=== PATIENT | female | born 1985 | race Caucasian/White ===

== ENCOUNTER 2018-02-07 12:53 | Outpatient (CLI) | END 2018-02-07 15:45 | disposition home or self-care (01) ==

== ENCOUNTER 2018-04-24 10:48 | Inpatient (IN) | END 2018-04-25 12:22 | disposition home or self-care (01) | DRG 833 ==

== ENCOUNTER 2018-05-02 16:45 | Inpatient (IN) | END 2018-05-05 16:27 | disposition home or self-care (01) | DRG 806 ==

== ENCOUNTER 2019-01-08 14:20 | Emergency (ER) | payer MEDICAID, OTHER ==
[~2019-01-08] VITALS: Ht 162.6 cm; Wt 111.1 kg
[~2019-01-08 14:20] MED LIST: PREN-93 PO
[2019-01-08 14:24] VITALS: Ht 162.6 cm; Wt 111.1 kg
[2019-01-08] MEDS ORDERED: SOD CHLORIDE 0.9% 1,000 ML IV STA (15:27)
[2019-01-08] MEDS ORDERED: ONDANSETRON 4 MG INJ IV STA (15:27)
[2019-01-08] MEDS ORDERED: CEFTRIAXONE 1 GM/50 ML (PMX) 50 ML IVPB ONE (18:00)
[2019-01-08] MEDS ORDERED: CEPH-443 PO (18:14)
[2019-01-08] MEDS ORDERED: ACET500C5 PO (18:15)
--- NOTE | 2019-01-08 18:23 | ERD ---
ER Documentation Chief Complaint Chief Complaint fever chills cough, vomitting x4 days HPI Patient is a 33-year-old female, no past medical history, presents to the ER for concerns of intermittent fevers, chills, vomiting x4 days. Patient reports T- max of 103. Patient states she is been taking Tylenol and ibuprofen. Last dose yesterday. Patient states she does not have a cough or sore throat. Please do not consume a triage note. Patient denies any chest pain, shortness breath, abdominal pain. Patient denies any dysuria, frequency or urgency. Patient is currently on her menstrual period. Patient denies any diarrhea or rectal bleeding. ROS All systems reviewed and are negative except as per history of present illness. Medications Home Meds Active Scripts Acetaminophen* (Tylophen*) 500 Mg Capsule, 1 CAP PO Q6H PRN for PAIN AND OR ELEVATED TEMP, #20 CAP Prov:PACHECO JONES PA-C 01/08/19 Cephalexin* (Keflex*) 500 Mg Capsule, 500 MG PO QID for 10 Days, CAP Prov:PACHECO JONES PA-C 01/08/19 Reported Medications Vit No.124/Iron/FA ( Vitamin Tablet) 1 Each Tablet, 1 EACH PO DAILY, TAB 04/24/18 Allergies Allergies: Coded Allergies: No Known Allergy (Verified , 05/02/18) PMhx/Soc History of Surgery: No Anesthesia Reaction: No Hx Neurological Disorder: No Hx Respiratory Disorders: No Hx Cardiac Disorders: No Hx Psychiatric Problems: No Hx Miscellaneous Medical Probl: No Hx Alcohol Use: No Hx Substance Use: No Hx Tobacco Use: No Smoking Status: Never smoker FmHx Family History: No diabetes Physical Exam Vitals Vital Signs Date Temp Pulse Resp B/P (MAP) Pulse Ox O2 O2 Flow FiO2 Time Delivery Rate 01/08/19 100.8 94 17 125/69 100 Room Air 18:45 (87) 01/08/19 99.2 101 18 123/56 98 14:24 (78) Physical Exam GENERAL: Well-developed, well-nourished female. Appears in no acute distress. HEAD: Normocephalic, atraumatic. No deformities or ecchymosis. EYE: Pupils equal, round, and reactive to light. EOMs intact. No conjunctival erythema. No eye discharge. ENT: External ear without any masses or tenderness. Auditory canals clear bilaterally. TM visualized bilaterally, non-erythematous, non-bulging. Nasal mucosa pink with no discharge. Oropharynx is erythematous with 1+ tonsillar enlargement bilaterally.. No uvula deviation. No kissing tonsils. NECK: Supple. No meningismus. Normal ROM of the neck. LUNG: Clear to auscultation bilaterally. No rhonchi, wheezing, rales or coarse breath sounds. HEART: Regular rate and rhythm. No murmurs, rubs or gallops. ABDOMEN: Soft nondistended. Tender to palpation in the bilateral lower quadrants. Positive bowel sounds in all four quadrants. No rebound tenderness, no guarding. (-) McBurney's point tenderness. No CVA tenderness. BACK: No midline tenderness. EXTREMITES: Equal pulses bilaterally. No peripheral clubbing, cyanosis or edema. No unilateral leg swelling. NEUROLOGIC: Alert and oriented to person, place and time. Moving all four extre mities. 5/5 strength in all extremities. Normal speech. Steady gait. SKIN: Normal color. Warm and dry. No rashes or lesions. Result Diagram: 01/08/19 1543 01/08/19 1543 Results 24 hrs Laboratory Tests Test 01/08/19 15:43 01/08/19 15:48 White Blood Count 3.7 10^3/ul Red Blood Count 4.59 10^6/ul Hemoglobin 12.4 g/dl Hematocrit 36.8 % Mean Corpuscular Volume 80.2 fl Mean Corpuscular Hemoglobin 27.0 pg Mean Corpuscular Hemoglobin Concent 33.7 g/dl Red Cell Distribution Width 13.3 % Platelet Count 165 10^3/UL Mean Platelet Volume 10.5 fl Immature Granulocytes % 1.600 % Neutrophils % 68.9 % Lymphocytes % 24.6 % Monocytes % 4.1 % Eosinophils % 0.5 % Basophils % 0.3 % Nucleated Red Blood Cells % 0.0 /100WBC Immature Granulocytes # 0.060 10^3/ul Neutrophils # 2.6 10^3/ul Lymphocytes # 0.9 10^3/ul Monocytes # 0.2 10^3/ul Eosinophils # 0.0 10^3/ul Basophils # 0.0 10^3/ul Nucleated Red Blood Cells # 0.0 10^3/ul Urine Color RAFFI Urine Clarity CLOUDY Urine pH 6.0 Urine Specific Cushing 1.017 Urine Ketones TRACE mg/dL Urine Nitrite NEGATIVE mg/dL Urine Bilirubin 1+ mg/dL Urine Urobilinogen 2+ mg/dL Urine Leukocyte Esterase 2+ Alisa/ul Urine Microscopic RBC > 182 /HPF Urine Microscopic WBC 107 /HPF Urine Squamous Epithelial Cells MANY /HPF Urine Bacteria FEW /HPF Urine Mucus FEW /HPF Urine Hemoglobin 3+ mg/dL Urine Glucose NEGATIVE mg/dL Urine Total Protein 2+ mg/dl Sodium Level 138 mmol/L Potassium Level 3.7 mmol/L Chloride Level 98 mmol/L Carbon Dioxide Level 27 mmol/L Anion Gap 13 Blood Urea Nitrogen 7 mg/dl Creatinine 0.67 mg/dl Est Glomerular Filtrat Rate mL/min > 60 mL/min Glucose Level 107 mg/dl Calcium Level 9.0 mg/dl Total Bilirubin 0.9 mg/dl Direct Bilirubin 0.00 mg/dl Indirect Bilirubin 0.9 mg/dl Aspartate Amino Transf (AST/SGOT) 84 IU/L Alanine Aminotransferase (ALT/SGPT) 75 IU/L Alkaline Phosphatase 125 IU/L Total Protein 8.3 g/dl Albumin 4.5 g/dl Globulin 3.80 g/dl Albumin/Globulin Ratio 1.18 Lipase 76 U/L Monoscreen Negative POC Beta HCG, Qualitative NEGATIVE Current Medications Medications Dose Sig/Maral Start Time Status Last (Trade) Ordered Route PRN Stop Time Admin Dose Reason Admin Sodium 1,000 ml @ Q1H STAT 01/08/19 DC 01/08/19 Chloride 1,000 mls/hr IV 15:27 15:47 01/08/19 16:26 Ondansetron 4 mg ONCE STAT 01/08/19 DC 01/08/19 HCl (Zofran IV 15:27 15:47 Inj) 01/08/19 15:29 Ceftriaxone 50 ml @ ONCE ONCE 01/08/19 DC 01/08/19 Sodium 100 mls/hr IVPB 18:00 17:59 01/08/19 18:29 1,000 mg ONCE STAT 01/08/19 DC 01/08/19 Acetaminophen PO 18:43 18:51 (Tylenol 01/08/19 18:44 Tab) Procedures/MDM ED COURSE: The patient was stable throughout ED course. I kept the patient and/or family informed of laboratory and diagnostic imaging results throughout the ED course. DIAGNOSTIC IMAGING: Read by radiologist. DIAGNOSTIC IMAGING REPORT Patient: ISATU KENNEDY : 1985 Age: 33 Sex: F MR #: [id number] DOS: 01/08/19 1643 Ordering MD: PACHECO JONES PA-C Location: [facility] Room/Bed: PROCEDURE: CT abdomen and pelvis without IV contrast. CLINICAL INDICATION: Abdominal pain TECHNIQUE: CT scan of the abdomen and pelvis without contrast was performed on the [employer] volumetric [address] scanner. The patient was scanned without intravenous contrast. Coronal and sagittal reformatted images were obtained from the axial source images. The CTDI vol is 20.38 mGy and the DLP is 1254.56 mGy- cm. DICOM images are available. One or more of the following dose reduction techniques were used: Automated exposure control. Adjustment of the mA and/or kV according to patient size. Use of iterative reconstruction technique. COMPARISON: None. FINDINGS: CT abdomen: The lung bases are clear. The heart size is not enlarged and is without pericardial thickening or effusion. The liver is without focal mass or intrahepatic biliary dilatation. The liver is enlarged measuring 18.4 cm with fatty infiltration. Spleen is enlarged measuring 16.1 cm in the cranial caudal axis. The spleen is homogeneous in density. The stomach is grossly unremarkable. The pancreas as visualized is normal. The gallbladder and biliary tree are unremarkable and there is no evidence for common bile duct dilatation. The adrenal glands are symmetric and normal. The kidneys are symmetrically unremarkable as well. No renal calculus or obstructive uropathy or mass lesion is seen. The aorta is of normal in caliber. There is no retroperitoneal lymphadenopathy. The mayco hepatis region is clear. The small and large bowel and mesentery, as visualized, are unremarkable. The normal appendix is identified. CT pelvis: The pelvic organs are normal. The pelvic sidewalls and inguinal regions are clear. No pelvic mass, lymphadenopathy, or free fluid is seen. No acute inflammation is seen. The urinary bladder is within normal limits. The surrounding osseous structures are unremarkable. No osteolytic or osteoblastic lesion is detected. IMPRESSION: 1. No acute pathology in the abdomen and pelvis. 2. Hepatosplenomegaly with fatty infiltration of the liver. RPTAT: HPNM Physician Lei Date Time Electronically viewed and signed by Pan Bazan Physician on 01/08/2019 17:40 / CC: PACHECO JONES PA-C [id number] Patient: ISATU KENNEDY : 1985 Age: 33 Sex: F MR #: [id number] DOS: 01/08/19 1621 Ordering MD: PACHECO JONES PA-C Location: [facility] Room/Bed: PROCEDURE: US Abdomen. CLINICAL INDICATION: RUQ pain TECHNIQUE: Multiple real-time images were acquired of the patient's abdomen and retroperitoneum utilizing a high resolution transducer. COMPARISON: None FINDINGS: The echogenic liver measures 19.2 cm. No gallstones are identified within the gallbladder. The gallbladder wall measures 3 mm. There is no pericholecystic fluid or gallbladder wall thickening. No intra or extrahepatic biliary dilatation is seen. The common bile duct measures 4.3 mm in maximal dimension. The visualized portions of the pancreas are unremarkable. There is no splenomegaly. No free fluid is identified. The right kidney measures 11.6 cm in long dimension. There is no dilatation of the pelvicaliceal systems bilaterally. There are no perinephric fluid collections. There are no areas of increased echogenicity to suggest nephrolithiasis. IMPRESSION: Suboptimal exam secondary to patient body habitus. Hepatic steatosis. Hepatomegaly. Underlying hepatocellular disease cannot be excluded. No biliary dilatation. Physician Trice Date Time Electronically viewed and signed by Physician Trice on 01/08/2019 17:39 RD/ CC: PACHECO JONES PA-C [id number] Patient: ISATU KENNEDY : 1985 Age: 33 Sex: F MR #: [id number] DOS: 01/08/19 1621 Ordering MD: PACHECO JONES PA-C Location: [facility] Room/Bed: PROCEDURE: US Abdomen. CLINICAL INDICATION: RUQ pain TECHNIQUE: Multiple real-time images were acquired of the patient's abdomen and retroperitoneum utilizing a high resolution transducer. COMPARISON: None FINDINGS: The echogenic liver measures 19.2 cm. No gallstones are identified within the gallbladder. The gallbladder wall measures 3 mm. There is no pericholecystic fluid or gallbladder wall thickening. No intra or extrahepatic biliary dilatation is seen. The common bile duct measures 4.3 mm in maximal dimension. The visualized portions of the pancreas are unremarkable. There is no splenome curly. No free fluid is identified. The right kidney measures 11.6 cm in long dimension. There is no dilatation of the pelvicaliceal systems bilaterally. There are no perinephric fluid collections. There are no areas of increased echogenicity to suggest nephrolithiasis. IMPRESSION: Suboptimal exam secondary to patient body habitus. Hepatic steatosis. Hepatomegaly. Underlying hepatocellular disease cannot be excluded. No biliary dilatation. Physician Trice Date Time Electronically viewed and signed by Physician Trice on 01/08/2019 17:39 RD/ CC: PACHECO JONES PA-C [id number] MEDICATIONS GIVEN: IV fluids, Zofran Patient tolerated medication well with no adverse reactions. Patient reported improvement in pain. MEDICAL DECISION MAKING: This is a 33-year-old female presents the ER for concerns of fevers, chills, vomiting abdominal pain. Vital signs were reviewed. Patient is afebrile. IV line is established. Blood work is obtained. CBC showed no evidence of systemic infection or severe anemia. CMP showed no evidence of electrolyte abnormalities, severe acidosis, alkalosis, renal failure. Patient's AST was noted to be 84, ALT of 75, alk phos 125. Lipase showed no evidence of acute pancreatitis. UA did show 2+ leukocyte esterase, 182 RBCs, 107 WBCs and 3+ hemoglobin. Patient is currently on her menstrual.. Urine test was negative. Gallbladder ultrasound was unremarkable except for hepatic steatosis. CT abdomen pelvis showed no acute pathology in the abdomen or pelvis. Given that patient does have positive WBCs and leukocyte esterase as well as fevers, chills, nausea and vomiting there are concerns of pyelonephritis. Patient denied any UTI symptoms however she states she is not sure if her pelvic discomfort is related to urinary symptoms versus menstrual symptoms. Patient was treated with Rocephin as a precaution for pyelonephritis. Patient will be discharged home with prescription for Keflex. Repeat UA was advised in 10 days upon completion of antibiotics. Prior to discharge patient did reported throat pain. At that time rapid strep and Monospot was ordered. Both were negative. At this time, patient's presentation was consistent with fever, nausea, vomiting and abdominal pain. Differential diagnosis included but was not limited to acute coronary syndrome, AAA, mesenteric ischemia, lower lobe pneumonia, strep pharyngitis, mononucleosis, DKA, bowel perforation, cholecystitis, choledocholit hiasis, ascending cholangitis, hepatic abscess, pancreatitis, PUD, gastritis, GERD, splenic rupture, diverticulitis, UTI, pyelonephritis, nephrolithiasis, appendicitis, constipation, , ectopic , PID, ovarian torsion or tubo-ovarian abscess. PRESCRIPTIONS: Tylenol, Keflex DISCHARGE: At this time, patient is stable for discharge and outpatient management. I have instructed the patient to follow-up with his/her primary care physician in 1-2 days. I have instructed the patient to promptly return to the ER at any time for any new or worsening symptoms including increased pain, nausea, vomiting, diarrhea, fever, weakness or LOC. The patient and/or family expressed understanding of and agreement with this plan. All questions were answered. Home care instructions were provided. Disclaimer: Inadvertent spelling and grammatical errors are likely due to EHR/dictation software use and do not reflect on the overall quality of patient care. Also, please note that the electronic time recorded on this note does not necessarily reflect the actual time of the patient encounter. Departure Diagnosis: Primary Impression: Fever Fever type: unspecified Qualified Codes: R50.9 - Fever, unspecified Additional Impression: Vomiting Vomiting type: unspecified Vomiting Intractability: unspecified Nausea presence: unspecified Qualified Codes: R11.10 - Vomiting, unspecified Condition: Fair Patient Instructions: Fever Control (Adult), Vomiting (6Y-Adult) Referrals: [facility] YOU HAVE RECEIVED A MEDICAL SCREENING EXAM AND THE RESULTS INDICATE THAT YOU DO NOT HAVE A CONDITION THAT REQUIRES URGENT TREATMENT IN THE EMERGENCY DEPARTMENT. FURTHER EVALUATION AND TREATMENT OF YOUR CONDITION CAN WAIT UNTIL YOU ARE SEEN IN YOUR DOCTORS OFFICE WITHIN THE NEXT 1-2 DAYS. IT IS YOUR RESPONSIBILITY TO MAKE AN APPOINTMENT FOR FOLOW-UP CARE. IF YOU HAVE A PRIMARY DOCTOR --you should call your primary doctor and schedule an appointment IF YOU DO NOT HAVE A PRIMARY DOCTOR YOU CAN CALL OUR PHYSICIAN REFERRAL HOTLINE AT IF YOU CAN NOT AFFORD TO SEE A PHYSICIAN YOU CAN CHOSE FROM THE FOLLOWING [facility] [address] [facility]. [facility] [address] [facility]. [facility] [address] [facility] [address] [facility]. [facility] [address] [facility]. [facility] [address] [facility]. [facility] YOU HAVE RECEIVED A MEDICAL SCREENING EXAM AND THE RESULTS INDICATE THAT YOU DO NOT HAVE A CONDITION THAT REQUIRES URGENT TREATMENT IN THE EMERGENCY DEPARTMENT. FURTHER EVALUATION AND TREATMENT OF YOUR CONDITION CAN WAIT UNTIL YOU ARE SEEN IN YOUR DOCTORS OFFICE WITHIN THE NEXT 1-2 DAYS. IT IS YOUR RESPONSIBILITY TO MAKE AN APPOINTMENT FOR FOLOW-UP CARE. IF YOU HAVE A PRIMARY DOCTOR --you should call your primary doctor and schedule and appointment IF YOU DO NOT HAVE A PRIMARY DOCTOR YOU CAN CALL OUR PHYSICIAN REFERRAL HOTLINE AT . IF YOU CAN NOT AFFORD TO SEE A PHYSICIAN YOU CAN CHOSE FROM THE FOLLOWING [facility]: [facility] [address] [place] [address] [facility] [address] [place] [address] [facility] [address] [place] [address] Additional Instructions: Call your primary care doctor TOMORROW for an appointment during the next 1-2 days.See the doctor sooner or return here if your condition worsens before your appointment time. PACHECO JONES PA-C Jan 08, 2019 18:23
[2019-01-08] MEDS ORDERED: ACETAMINOPHEN 500 MG TAB PO STA (18:43)
[2019-01-08 19:48] VITALS: BP 120/69; PULSE 93; RESP 16
== END 2019-01-08 19:48 | disposition home or self-care (01) ==
LOC: FTE 14:20
DX: R50.9 Fever, unspecified (principal); R11.10 Vomiting, unspecified
CPT/HCPCS: 74176; 76705; 80053; 81001; 81025; 83690; 85025; 86308; 87086; 87880; J0696; J2405; J7030; Z7610; 36415; 96374; 96375